=== PATIENT | female | born 1965 | race Two or more races ===

== ENCOUNTER 2017-12-13 07:45 | Outpatient (CLI) | payer OTHER | END 2017-12-13 08:03 | disposition home or self-care (01) | LOC: RAD 07:45 | DX: I10 Essential (primary) hypertension (principal); J44.9 Chronic obstructive pulmonary disease, unspecified ==

== ENCOUNTER 2017-12-20 06:15 | Day surgery (SDC) | payer OTHER | END 2017-12-20 14:32 | disposition home or self-care (01) | LOC: CIR.AMB 06:15 | DX: C67.2 Malignant neoplasm of lateral wall of bladder (principal); C67.4 Malignant neoplasm of posterior wall of bladder ==

== ENCOUNTER 2018-04-18 06:05 | Day surgery (SDC) | payer OTHER | END 2018-04-18 12:25 | disposition home or self-care (01) | LOC: CIR.AMB 06:05 | DX: C67.9 Malignant neoplasm of bladder, unspecified (principal) ==

== ENCOUNTER 2018-12-19 06:00 | Day surgery (SDC) | payer OTHER | END 2018-12-19 12:30 | disposition home or self-care (01) | LOC: CIR.AMB 06:00 | DX: C67.4 Malignant neoplasm of posterior wall of bladder (principal) ==

== ENCOUNTER 2019-07-24 05:45 | Day surgery (SDC) | payer OTHER | END 2019-07-24 14:35 | disposition home or self-care (01) | LOC: CIR.AMB 05:45 → ADM 08:15 → CIR.AMB 10:00 | DX: C67.2 Malignant neoplasm of lateral wall of bladder (principal); C67.3 Malignant neoplasm of anterior wall of bladder; C67.4 Malignant neoplasm of posterior wall of bladder ==

== ENCOUNTER 2020-04-14 06:10 | Day surgery (SDC) | payer OTHER | END 2020-04-14 13:35 | disposition home or self-care (01) | LOC: CIR.AMB 06:10 | PROVIDERS: ATTEND Urology | DX: C67.8 Malignant neoplasm of overlapping sites of bladder (principal); Z20.828 Contact with and (suspected) exposure to other viral communicable diseases ==

== ENCOUNTER 2022-12-03 05:25 | Day surgery (SDC) | payer OTHER ==
[~2022-12-03] VITALS: Ht 152.4 cm; Wt 46.7 kg
== END 2022-12-03 13:00 | disposition home or self-care (01) ==
LOC: CIR.AMB 05:25
PROVIDERS: ATTEND Urology
DX: C67.9 Malignant neoplasm of bladder, unspecified (principal); Z88.2 Allergy status to sulfonamides; Z88.1 Allergy status to other antibiotic agents; Z20.822 Contact with and (suspected) exposure to COVID-19

== ENCOUNTER 2022-12-27 08:24 | Outpatient (CLI) | payer OTHER | END 2022-12-27 08:40 | disposition home or self-care (01) | LOC: TOM 08:24 | PROVIDERS: ATTEND Urology | DX: C67.9 Malignant neoplasm of bladder, unspecified (principal); N30.00 Acute cystitis without hematuria ==

== ENCOUNTER 2024-02-10 13:32 | Outpatient (CLI) | payer OTHER ==
[2024-02-10 14:24] LABS: URINE APPEARANCE Clear; URINE BILIRRUBIN Negative (NEGATIVE); URINE BLOOD Negative; URINE COLOR Yellow; URINE GLUCOSE Negative (NEGATIVE); URINE KETONE Negative (NEGATIVE); URINE LEUKOCYTE Negative; URINE NITRATE Negative; URINE PROTEIN Negative (NEGATIVE); URINE UROBILINOGEN 0.2 E.U./dl
[2024-02-10 14:31] LABS: URINE BACTERIA 2.5 uL (0.0-1933); URINE EPITHELIAL CELLS 0.4 uL (0.0-38.8)
== END 2024-02-10 13:50 | disposition home or self-care (01) ==
LOC: LAB 13:32
PROVIDERS: ATTEND Urology
DX: N30.00 Acute cystitis without hematuria (principal)